=== PATIENT | female | born 1980 | race Two or more races ===

== ENCOUNTER 2018-09-08 03:36 | Emergency (ER) | payer OTHER ==
[~2018-09-08] VITALS: Ht 162.6 cm; Wt 64.4 kg
[2018-09-08 03:55] VITALS: BP 117/67
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
[2018-09-08] MEDS ORDERED: IBUPROFEN 400 MG TABLET ONE (04:00)
[2018-09-08] MEDS ORDERED: IBUPROFEN 400 MG TABLET PO ONE (04:00)
--- NOTE | 2018-09-08 04:18 | NUR ---
RADIOLOGY AT BEDSIDE FOR XRAY
--- NOTE | 2018-09-08 05:54 | NUR ---
Patient discharged to home in stable condition. Written and verbal after care instructions given. Patient verbalizes understanding of instruction.
== END 2018-09-08 05:55 | disposition home or self-care (01) ==
LOC: ER 03:39
DX: S93.492A Sprain of other ligament of left ankle, initial encounter (principal); S33.6XXA Sprain of sacroiliac joint, initial encounter; F17.200 Nicotine dependence, unspecified, uncomplicated; V09.9XXA Pedestrian injured in unspecified transport accident, initial encounter; Y93.89 Activity, other specified; Y92.89 Other specified places as the place of occurrence of the external cause; Y99.8 Other external cause status
CPT/HCPCS: 72220; 73130 ×2; 73610; 73630; 99283; A4606; Z7610